=== PATIENT | male | born 1975 | race Caucasian/White ===

== ENCOUNTER 2025-05-12 10:06 | Emergency (ER) | payer OTHER, SELFPAY ==
[2025-05-12 10:07] VITALS: BP 136/85
[2025-05-12 10:51] LABS: Hematocrit 42.6 % (39.0-52.0); Hemoglobin 14.6 g/dL (13.0-18.0); Mean Corp Hgb Conc. 34.3 g/dL (33.0-37.0); Mean Corpuscular Volume 83.0 fL (80.0-94.0); Nucleated Red Blood Cells % 0 % (-); Platelet Count 237 10^3/uL (130-400); Red Cell Dist. Width 13.2 % (11.5-14.5)
--- NOTE | 2025-05-12 10:51 | ED.GENMED ---
History of Present Illness
General
Chief Complaint: Throat Problem
Time Seen by Provider: 05/12/25 10:29
History of Present Illness
History of Present Illness:
Patient is a 49-year-old male with history of hyperlipidemia presenting to the emergency room with sore throat. Patient states that 3 days ago he went to his primary care doctor and was diagnosed with peritonsillar cellulitis and started on
Augmentin. He had an appointment today to follow-up. Patient states that he feels much better the sore throat is gone. He is able to talk. He is not gagging. No fevers chills. No tongue swelling. No neck stiffness. No neck fullness. However
he went to his primary care doctor and they told him to come to the emergency department for IV antibiotics for concern for peritonsillar abscess. Patient is extremely confused as to why his doctor recommended this as he is feeling much better
since his symptoms were started.
Phy Exam
Physical Exam
Physical Exam:
GENERAL: in no acute distress
HEENT: normocephalic, extraocular movements intact, moist oral mucosa, no tongue swelling or tongue elevation, uvula midline, slight erythema to the left peritonsillar region, no exudates, no obvious fluctuance or drainage
NECK: normal inspection
RESPIRATORY: no respiratory distress, clear to auscultation bilaterally
CARDIOVASCULAR: regular rate and rhythm
ABDOMEN/: soft, non-distended, non-tender to palpation, no rebound or guarding
EXTREMITIES: non-tender, no edema/swelling
NEUROLOGIC: awake and alert, moves all extremities
SKIN: warm
Course
Orders/Labs/Results
Orders:
Orders
05/12/25 10:35
CT Neck With Iv Contrast Urgent
Comment:
Reason For Exam: [employer]
05/12/25 10:43
Basic Metabolic Panel Urgent
Complete Blood Count/With Diff Urgent
05/12/25 10:51
Dexamethasone Sod Phosphate [Decadron] 10 mg IV NOW STA
Abnormal Lab Results
05/12/25
10:43
Absolute Monos (auto) 0.7 H 10^3/uL
(0.1-0.6)
Sodium 134 L mmol/L
(135-145)
Glucose 302 H mg/dl
(70-99)
05/12/25 10:43
05/12/25 10:43
Vital Signs
Initial and Last Documented VS:
Initial Vital Signs
Temp Pulse Resp BP Pulse Ox
98.3 F 83 18 136/85 97
05/12/25 10:07 05/12/25 10:07 05/12/25 10:07 05/12/25 10:07 05/12/25 10:07
Last Documented Vital Signs
Temp Pulse Resp BP Pulse Ox
98.3 F 83 18 136/85 97
05/12/25 10:07 05/12/25 10:07 05/12/25 10:07 05/12/25 10:07 05/12/25 10:53
MDM/Problems Addressed
Differential Diagnosis Includes:
Patient is a 49-year-old man presenting to the emergency department at the request of his PCP for concerns for peritonsillar abscess. On arrival vitals unremarkable and on exam he has some slight erythema to the left peritonsillar region no obvious
drainage or pocket of fluid on visual inspection. Concern for peritonsillar cellulitis and less likely abscess less likely to be RPA or Breezy's. Will check blood work and CT neck with contrast. Will give steroids.
*Pulse Oximetry
SaO2: 97
Oxygen Mode of Delivery: Room air
Patient hypoxic: no
*Critical Care Note
Total Time (30-74mins, 75-104mins- exclusive of procedures): Not Applicable
Update Note
Update Note:
Patient blood work is reassuring. On reevaluation patient is resting comfortably. He remains pretty much asymptomatic. He is speaking in full sentences and protecting his airway. He is extremely frustrated and confused as to why he is here as he
feels much better. He has still not received his CT scan. I did reevaluate patient's oropharynx and there have been no changes. He remains to have some slight left-sided erythema with very mild fullness. I did discuss with patient at length that
even if there was a small abscess all his symptoms are improving on the antibiotics and he has received the steroids. After shared decision making patient would prefer to not receive the CT scan and be discharged. He will continue to take the
Augmentin. He will call ENT for follow-up if symptoms worsen and come back to the emergency department if symptoms worsen. I do think this is appropriate as well his symptoms have been getting better and he does not appear systemically ill. He is
protecting his airway and tolerating secretions. Will discharge at this time.
ED Attending Note
-
Portions of this chart may have been created with voice recognition software.� Occasional wrong word or��sound alike� substitutions may have occurred due to the inherent limitations of voice recognition software.
Discharge Plan
Departure
Patient Disposition: Home (Routine Discharge)
Date of Disposition: 05/12/25
Time of Disposition: 12:47
Patient with high blood pressure during this ER visit?: No
Discharge Problem:
Peritonsillar cellulitis
Instructions: Sore Throat, Adult (DC)
Referrals:
Maribell Hollis CRNP [Family Provider, Family Practice]
Cesar Sancehz MD [Active, Otology]
Keyanna Galvan MD [Active, Otology]
Activity Restrictions/Additional Instructions:
You were seen in the Emergency Department today for a sore throat. While you were here we performed blood work, which was reassuring. Please make sure you continue to take the antibiotics. He may follow-up with ENT.
We would like for you to follow up with your primary care physician for further evaluation. If you experience fever, worsening of your symptoms, or develop any other new or concerning symptoms, please return to the Emergency Department immediately.
Please see the attached sheet for additional information.
Interventions
Interventions:
*Risk Screen - Suicide Last Done: 05/12/25 10:09
*General Assessment Last Done: 05/12/25 10:09
*Neglect/Abuse Screening Last Done: 05/12/25 10:09
ED- Pulmonary Assessment Last Done: 05/12/25 10:47
Discharge Date and Time
Print Language: SLOVENIAN
[2025-05-12] MEDS: DECADRON 10 MG IV (11:13)
[2025-05-12 11:16] LABS: Blood Urea Nitrogen 16 mg/dl (9-20); Calcium 9.4 mg/dl (8.4-10.2); Carbon Dioxide 26 mmol/L (22-30); Chloride 101 mmol/L (98-107); Glucose 302 mg/dl (70-99); Potassium 4.5 mmol/L (3.5-5.1); Sodium 134 mmol/L (135-145); eGFR > 60.00
== END 2025-05-12 13:34 | disposition home or self-care (01) ==
LOC: EMR 10:06
PROVIDERS: EMERGENCY PHYSICIAN Student in an Organized Health Care Education/Training Program; FAMILY PHYSICIAN Nurse Practitioner
DX: J36 Peritonsillar abscess (principal); E78.5 Hyperlipidemia, unspecified
CPT/HCPCS: 99284; 96374; 80048; 85025